=== PATIENT | male | born 1980 | race African-American/Black ===

== ENCOUNTER 2019-01-27 14:44 | Emergency (ER) | payer MEDICAID, OTHER ==
[~2019-01-27] VITALS: Ht 175.3 cm; Wt 118.0 kg
[2019-01-27 15:59] VITALS: BP 154/90
== END 2019-01-27 18:56 | disposition home or self-care (01) ==
LOC: ER 16:57
DX: M76.892 Other specified enthesopathies of left lower limb, excluding foot (principal); Z88.0 Allergy status to penicillin
CPT/HCPCS: 73630; 99283